=== PATIENT | female | born 1990 | race Caucasian/White ===

== ENCOUNTER 2021-11-14 14:01 | Emergency (ER) | payer SELFPAY ==
[2021-11-14 14:19] VITALS: BP 120/68; PULSE 103; RESP 16; TEMP 37.3; O2SAT 98; BMI 32.5
--- NOTE | 2021-11-14 14:27 | ED_ITS ---
Documented by User: Aminata Dale PA-C 11/14/21 14:29 HPI - General Adult General: Chief complaint: General Medical Stated complaint: Upper back pain, right inner thigh cyst Time Seen by Provider: 11/14/21 14:50 Source: patient Mode of arrival: wheelchair Limitations: no limitations History of Present Illness: HPI narrative: 31-year-old female presents to the ER today for a cyst or abscess to the right inner thigh. Patient reports this has been there for about 2 to 3 days but has significantly worsened today. Patient reports she has had chills, nausea and vomiting due to pain today. Patient denies having had anything like this before. She reports she tried to open it and did get some discharge from it however it is not continuing to drain at this time. Patient denies any recent sick contacts. Patient denies any history of MRSA. Patient denies any headache, fever, ear pain, congestion, sore throat, chest pain, shortness of breath, diarrhea, constipation. Onset (ago): day(s) (3) Location: upper extremity (Thigh/groin) Radiation: non-radiation Severity scale (1-10): 8 Quality: burning and aching Pain Consistency: constant Exacerbating factors: movement Associated symptoms: Reports nausea and vomiting Review of Systems General: Reports: 10 or more systems reviewed and unremarkable except in HPI and below Const: Reports: chills and change in appetite GI: Reports: nausea and vomiting [facility] ED PFSH: Medical History (Updated 11/14/21 @ 16:07 by Rolando Howard DO) No significant past medical history Surgical History (Updated 11/14/21 @ 15:24 by Rolando Howard DO) No significant past surgical history Course Vital Signs: Vital signs: Vital Signs Temperature 99.1 F 11/14/21 14:19 Pulse Rate 87 11/14/21 16:13 Respiratory Rate 18 11/14/21 16:13 Blood Pressure 134/74 11/14/21 16:13 Pulse Oximetry 98 11/14/21 16:13 Discharge Plan Discharge Patient Disposition: Home Clinical Impression: Abscess Condition: Stable Prescriptions: New Bactrim DS 800-160 mg tablet 1 tab PO BID 10 Days Qty: 20 RF: 0 hydrocodone-acetaminophen 5-325 mg tablet 1 tab PO Q6H PRN (Reason: pain) Qty: 20 RF: 0 Antibiotic (bacitracin zinc) 500 unit/gram ointment 1 applic topical BID Qty: 28 RF: 0 Discharge Orders: Discharge ED (Routine); Ordered 11/14/21 Ordered By: Rolando Howard Discharge Diet: Usual diet Discharge Activity: Limit activity as instructed Patient Instructions: Opioid Safety Activity Restrictions/Additional Instructions: Follow-up tomorrow in the emergency room or one of the local walk-in clinics to have the packing changed. Coding Level of Care Code ED Control Clerk [employer] for Chg Fwd Exam Comprehensive Documented by User: Rolando Howard, 11/14/21 17:34 HPI - General Adult General: Chief complaint: General Medical Stated complaint: Upper back pain, right inner thigh cyst Time Seen by Provider: 11/14/21 14:50 History of Present Illness: HPI narrative: 31-year-old female who presents to the emergency room with a complaint of cyst in the right inner thigh. Present for the last 2 days she is tried to manipulate and gotten some drainage for it. She denies previously having anything boils or abscess, no history of MRSA. She generally has not been feeling well is complaining of significant pain to the area. She did chills with nausea and vomiting which she relates to the pain. Onset (ago): day(s) (2) Location: right and lower extremity (Medial thigh) Severity: mild Quality: stabbing Pain Consistency: constant Relieving factors: none Exacerbating factors: none Associated symptoms: Deny chest pain, confusion, cough, diaphoresis, decreased appetite, dyspnea, fevers/chills, headache(s), malaise, nausea, rash, palpitations, seizures, short of breath, syncope, vomiting or weakness Treatments prior to arrival: none Review of Systems Const: Denies: malaise or diaphoresis ENMT: Denies: throat pain, ear or mastoid pain, nasal discharge or nasal jonas estion Card: Denies: chest pain, palpitations or syncope Resp: Denies: dyspnea GI: Denies: nausea or vomiting : Denies: flank pain, difficulty voiding, dysuria, urinary frequency or urinary urgency Skin/Breast: Denies: rash Neuro: Denies: headache(s) or confusion [facility] ED PFSH: Medical History (Updated 11/14/21 @ 16:07 by Rolando Howard DO) No significant past medical history Surgical History (Updated 11/14/21 @ 15:24 by Rolando Howard DO) No significant past surgical history Physical Exam Const: COMMON NORMALS: no acute distress GENERAL APPEARANCE: cooperative and comfortable ORIENTATION/CONSCIOUSNESS: Yes awake, Yes oriented to person, Yes oriented to place and Yes oriented to time HENMT: COMMON NORMALS: normocephalic, atraumatic and hearing grossly normal bilaterally HEAD & SCALP: normocephalic and atraumatic Neck/C-Spine: COMMON NORMALS: no JVD Resp: COMMON NORMALS: normal respiratory effort, No retractions, No use of accessory muscles and clear to auscultation bilaterally AUSCULTATION: clear to auscultation bilaterally Cardio: COMMON NORMALS: no JVD, regular rate, regular rhythm and No murmurs present (Cardio) RATE: regular rate RHYTHM: regular rhythm GI: COMMON NORMALS: Soft to palpation and No hepatosplenomegaly present AUSCULTATION: Yes normoactive bowel sounds PALPATION: Yes Soft to palpation, No Tenderness to palpation present (GI), No Guarding due to palpation present (GI) and Yes No hepatosplenomegaly present Extremity: COMMON NORMALS: normal to inspection, capillary refill normal, no clubbing, cyanosis or edema, no calf tenderness and no pedal edema Neuro: SENSORIUM/ORIENTATION: Yes oriented to person, Yes oriented to place and Yes oriented to time Skin: COMMON NORMALS: no rashes or lesions noted GENERAL SKIN EXAM: no rashes or lesions noted Procedures Abscess I/D Site: lower extremity (Right medial thigh) Side (if applicable): right Sedation/analgesia: none Local Anesthetic: lidocaine 1% and with epi Amount of anesthesia used (mL): 10 Technique: incised with #11 blade Amount of fluid expressed (mL): 3 Packing used?: plain Course Vital Signs: Vital signs: Vital Signs Temperature 99.1 F 11/14/21 14:19 Pulse Rate 87 01/07/22 16:13 Respiratory Rate 18 11/14/21 16:13 Blood Pressure 134/74 11/14/21 16:13 Pulse Oximetry 98 11/14/21 16:13 MDM - General Adult MDM Narrative: Medical decision making narrative: Abscess ultrasound 2 small cavities noted with his several septations. After adequate time was allowed for anesthesia incised an 11 blade and extended anteriorly probes wound several small pockets of purulent fluid were opened up and drained. Wound cleansed and packed. Instructions to return tomorrow for repacking of the wound started on oral antibiotics and pain medications topical antibiotic to the edge of the wound. Discharge Plan Discharge Patient Disposition: Home Clinical Impression: Abscess Condition: Stable Prescriptions: New Bactrim DS 800-160 mg tablet 1 tab PO BID 10 Days Qty: 20 RF: 0 hydrocodone-acetaminophen 5-325 mg tablet 1 tab PO Q6H PRN (Reason: pain) Qty: 20 RF: 0 Antibiotic (bacitracin zinc) 500 unit/gram ointment 1 applic topical BID Qty: 28 RF: 0 Discharge Orders: Discharge ED (Routine); Ordered 11/14/21 Ordered By: Rolando Howard Discharge Diet: Usual diet Discharge Activity: Limit activity as instructed Patient Instructions: Opioid Safety Activity Restrictions/Additional Instructions: Follow-up tomorrow in the emergency room or one of the local walk-in clinics to have the packing changed. Coding Level of Care Code ED Control Clerk [employer] for Mirlande Fwcheri Exam Comprehensive
[2021-11-14 16:13] VITALS: BP 134/74; PULSE 87; RESP 18; O2SAT 98
== END 2021-11-14 16:17 | disposition home or self-care (01) ==
PROVIDERS: Emergency Provider Family Medicine
DX: L02.415 Cutaneous abscess of right lower limb (principal)
CPT/HCPCS: 87070; 87075; 87186; 87205; 99282

== ENCOUNTER 2021-11-16 10:30 | Emergency (ER) | payer BC, SELFPAY ==
[2021-11-16 10:49] VITALS: BP 174/88; PULSE 78; RESP 16; TEMP 36.3; O2SAT 99; BMI 31.1
[2021-11-16 14:20] LABS: Basophils # 0.1 10^3/uL (0.0-0.1); Basophils % 0.5 %; Eosinophils % 0.2 %; Hematocrit 46.4 % (37.0-47.0); Hemoglobin 15.3 g/dL (11.5-15.3); Lymphocytes # 1.3 10^3/uL (0.8-4.8); Lymphocytes % 6.6 %; Mean Corpuscular Hemoglobin 29.3 pg (28.0-34.0); Mean Corpuscular Volume 88.9 fl (81-99); Mean Platelet Volume 8.8 fL (7.4-10.4); Monocytes % 5.1 %; Neutrophils # 16.97 10^3/uL (1.8-7.7); Neutrophils % 86.2 %; Nucleated Red Blood Cells % 0 %; Platelet Count 365 10^3/cmm (130-400); Red Blood Count 5.22 10^6/uL (4.1-5.3); White Blood Count 19.7 10^3/uL (4.0-10.0)
[2021-11-16 14:49] LABS: Alanine Aminotransferase 11 U/L (0-33); Albumin Level 4.3 g/dL (3.5-5.2); Alkaline Phosphatase 97 IU/L (35-105); Anion Gap 19.7 (5-19); Aspartate Amino Transferase 12 U/L (0-32); Blood Urea Nitrogen 13 mg/dL (6-20); Carbon Dioxide 25 mmol/L (22-29); Chloride 96 mmol/L (98-107); Globulin 3.3 g/dL (1.3-4.6); Glomerular Filtration Rate 118.2 mL/min (90-130); Glucose 101 mg/dL (65-115); Osmolality Calculated 284 mOsm/kg (285-295); Potassium 3.7 mmol/L (3.5-5.1); Sodium 137 mmol/L (136-145); Total Bilirubin 0.3 mg/dL (0.15-1.2); Total Protein 7.6 g/dL (6.6-8.7)
[2021-11-16 15:40] LABS: Lactic Sepsis W/Reflex 1.4 mmol/L (0.5-2.2)
[2021-11-16 17:37] VITALS: BP 143/83; PULSE 83; RESP 14; O2SAT 95
--- NOTE | 2021-11-16 17:51 | W.ED.SKABFB ---
HPI - Skin/Abscess/Foreign Bdy General: Chief complaint: Skin/Abscess/Foreign Body Stated complaint: n/v Time Seen by Provider: 11/16/21 17:04 Source: patient Mode of arrival: ambulatory History of Present Illness: HPI narrative: 31-year-old female presents emergency department chief complaint of right inner thigh abscess reports was recently drained a couple of days ago who presents today due to increased pain noted to it as well as drainage and nausea due to the pain patient reports no recent trauma or injury noted to it reports she just recently remove the packing which she has further follow-up with primary care recently. Patient has no other complaints at this time. Location: LLE Severity: moderate Severity scale (1-10): 5 Associated symptoms: Reports nausea; Deny chills or fever(s) Review of Systems General: Reports: 10 or more systems reviewed and unremarkable except in HPI and below Const: Denies: fever(s), chills, fatigue or malaise Eyes: Denies: change in vision or blurry vision Card: Denies: chest pain or palpitations Resp: Denies: dyspnea or productive cough GI: Reports: nausea : Denies: flank pain Musc: Denies: extremity pain or extremity swelling Skin/Breast: Reports: erythema, skin pain, skin tenderness and sores; Denies: rash or pruritus Neuro: Denies: headache(s) Psych: Denies: anxiety or depression Ladarius/Lymph: Denies: easy bleeding All/Imm: Denies: urticaria, throat swelling or facial swelling PFS ED PFSH: Medical History No significant past medical history Surgical History No significant past surgical history Physical Exam Narrative: EXAM NARRATIVE: Patient appears nontoxic appears in no obvious acute distress on exam. Const: COMMON NORMALS: no acute distress, patient oriented x3 and healthy appearing HENMT: COMMON NORMALS: normocephalic and atraumatic HEAD & SCALP: normocephalic and atraumatic Eye: COMMON NORMALS: Equal, round and reactive pupils present and EOMs intact bilaterally PUPIL: Yes Equal, round and reactive pupils present Neck/C-Spine: COMMON NORMALS: full ROM, supple and no JVD Lymph: LYMPHATIC: no lymphadenopathy noted Chest: COMMONS NORMALS: normal inspection of the chest and normal palpation of entire chest wall Resp: COMMON NORMALS: normal respiratory effort, No retractions and clear to auscultation bilaterally EFFORT & INSPECTION: Yes able to speak in complete sentences and Yes symmetric chest movement AUSCULTATION: clear to auscultation bilaterally Cardio: COMMON NORMALS: no JVD, regular rate and regular rhythm RATE: regular rate RHYTHM: regular rhythm GI: COMMON NORMALS: Normal to inspection, nondistended, normoactive bowel sounds present, Soft to palpation and non-tender INSPECTION: Yes normal to inspection PALPATION: Yes Soft to palpation : COMMON NORMALS: Yes no CVA tenderness BLADDER/KIDNEY EXAM: Yes no CVA tenderness Back/Pelvis: COMMON NORMALS: no CVA tenderness Extremity: COMMON NORMALS: normal to inspection and full ROM Neuro: COMMON NORMALS: patient oriented x3, CN's II-XII intact bilaterally, moves all extremities and no focal motor deficits Psych: COMMON NORMALS: mental status grossly normal, Normal thought process present, cooperative and normal affect THOUGHT PROCESS: Normal thought process present Skin: COMMON NORMALS: no rashes or lesions noted NARRATIVE SKIN EXAM: Patient has what appears to be in a sized healing abscess noted to the right inner thigh near the groin approximately 4 simmers in length into deep subcutaneous tissue mild drainage appreciated no surrounding erythema or induration noted GENERAL SKIN EXAM: no rashes or lesions noted Course ED course: Due to the patient's symptoms and condition will be treating her with an x-ray of the right femur to confirm no air tracking of the abscess and additional fluid collections or tracking.. Patient will be provided a hydrocodone for pain control as well as Zofran for nausea. Anticipate probable discharge home with wound care management. X-ray imaging came back unremarkable patient is already on hydrocodone advised for her to continue on her current medication regimen as previously prescribed advised further follow-up with primary care as indicated which advised to return the interim if any of her symptoms persist or worse. Vital Signs: Vital signs: Vital Signs Temperature 97.4 F L 11/16/21 10:49 Pulse Rate 83 11/16/21 17:37 Respiratory Rate 14 11/16/21 17:37 Blood Pressure 143/83 11/16/21 17:37 Pulse Oximetry 95 11/16/21 17:37 MDM - Skin/Abscess/Foreign Bdy Lab Data: Labs: Lab Results 11/16/21 11/16/21 11/16/21 14:13 14:13 14:13 WBC 19.7 10^3/uL H 10 ^3/uL (4.0-10.0) RBC 5.22 10^6/uL 10^6 /uL (4.1-5.3) Hgb 15.3 g/dL g/dL (11.5-15.3) Hct 46.4 % % (37.0-47.0) MCV 88.9 fl fl (81-99) MCH 29.3 pg pg (28.0-34.0) MCHC 33.0 g/dL g/dL (30.0-36.0) RDW 13.0 % % (12.1-15.1) Plt Count 365 10^3/cmm 10^3 /cmm (130-400) MPV 8.8 fL fL (7.4-10.4) Neut % (Auto) 86.2 % % Lymph % (Auto) 6.6 % % Rutherford % (Auto) 5.1 % % Eos % (Auto) 0.2 % % Baso % (Auto) 0.5 % % Neut # (Auto) 16.97 10^3/uL H 1 0^3/uL (1.8-7.7) Lymph # (Auto) 1.3 10^3/uL 10^3/ uL (0.8-4.8) R[place]ford # (Auto) 1.0 10^3/uL H 10^ 3/uL (0.2-0.9) Eos # (Auto) 0.0 10^3/uL 10^3/ uL (0.0-0.8) Baso # (Auto) 0.1 10^3/uL 10^3/ uL (0.0-0.1) Nucleated RBC % (a uto) 0 % % Nucleated RBCs # 0.0 /100WBC /100W BC Sodium 137 mmol/L mmol/L (136-145) Potassium 3.7 mmol/L mmol/L (3.5-5.1) Chloride 96 mmol/L L mmol/ L (98-107) Carbon Dioxide 25 mmol/L mmol/L (22-29) Anion Gap 19.7 H (5-19) BUN 13 mg/dL mg/dL (6-20) Creatinine 0.6 mg/dL mg/dL (0.5-0.9) GFR Calculation 118.2 mL/min mL/m in (90-130) Glucose 101 mg/dL mg/dL (65-115) Calculated Osmolal ity 284 mOsm/kg L mOs m/kg (285-295) Lactic Acid 1.4 mmol/L mmol/L (0.5-2.2) Calcium 9.0 mg/dL mg/dL (8.5-10.5) Total Bilirubin 0.3 mg/dL mg/dL (0.15-1.2) AST 12 U/L U/L (0-32) ALT 11 U/L U/L (0-33) Alkaline Phosphata se 97 IU/L IU/L (35-105) Total Protein 7.6 g/dL g/dL (6.6-8.7) Albumin 4.3 g/dL g/dL (3.5-5.2) Globulin 3.3 g/dL g/dL (1.3-4.6) Discharge Plan Discharge Patient Disposition: Home Clinical Impression: Abscess, Wound dehiscence, Acute pain of right thigh, Status post incision and drainage Condition: Stable Prescriptions: New Zofran 4 mg tablet 4 mg PO Q8H 5 Days Qty: 15 RF: 0 No Action amoxicillin-pot clavulanate [Augmentin] 875-125 mg tablet 1 tab PO BID 7 Days Qty: 14 RF: 0 Bactrim DS 800-160 mg tablet 1 tab PO BID 10 Days Qty: 20 RF: 0 hydrocodone-acetaminophen 5-325 mg tablet 1 tab PO Q6H PRN (Reason: pain) Qty: 20 RF: 0 Antibiotic (bacitracin zinc) 500 unit/gram ointment 1 applic topical BID Qty: 28 RF: 0 Discharge Orders: Discharge ED (Routine); Ordered 11/16/21 Ordered By: Andrea Lo Patient Instructions: Acute Wound Care (ED), Abscess (ED), Opioid Safety Activity Restrictions/Additional Instructions: You are instructed to further follow-up with your primary care doctor in the next 2 to 3 days as needed for further evaluation of wound care as well as pain medication and antibiotic medication you are on the current appropriate plan for this at this time. You advised to keep the wound clean dry intact and covered until completely healed. Please return in the interim if any of your symptoms persist or worse. Coding Level of Care Code ED [employer] Machine Operator for Chg Fwd Exam Comprehensive
--- NOTE | 2021-11-16 18:12 | XRR_ITS ---
PROCEDURE INFORMATION: Exam: XR Right Femur Exam date and time: 11/16/2021 6:12 PM Age: 31 years old Clinical indication: Condition or disease; Patient HX: Right hip abscess/pain TECHNIQUE: Imaging protocol: XR Right femur. Views: 2 views. COMPARISON: No relevant prior studies available. FINDINGS: Bones/joints: No acute fracture. No dislocation. Normal bone mineralization. No joint effusion. Joint spaces are maintained. No lytic or sclerotic bony lesions. Soft tissues: No soft tissue swelling. No radiopaque foreign body. XR/XR femur RT min 2V* [id number] IMPRESSION: No evidence for osteomyelitis. MRI without and with contrast may be obtained if there is continuing clinical concern for osteomyelitis. If the patient has any contradiction for MRI, 3 phase bone scan in conjunction with white blood cell scan may be obtained.
[2021-11-16] MEDS: HYDROcodone-acetaminophen 5-325 mg Tablet 1 TAB PO (18:17)
[2021-11-16] MEDS: ondansetron 4 MG Tablet PO (18:17)
--- NOTE | 2021-11-17 16:18 | PC.NURSE ---
Lab reported Leg wound had heavy growth of Group A streptococcus.
== END 2021-11-16 19:18 | disposition home or self-care (01) ==
PROVIDERS: Emergency Medicine; Physician Assistant; Emergency Provider Emergency Medicine
DX: L02.415 Cutaneous abscess of right lower limb (principal); T81.30XA Disruption of wound, unspecified, initial encounter; Y84.8 Other medical procedures as the cause of abnormal reaction of the patient, or of later complication, without mention of misadventure at the time of the procedure
CPT/HCPCS: 73552; 80053; 83605; 85025; 99283; Q0162